=== PATIENT | female | born 2000 | race Native Hawaiian/Other Pacific Islander ===

== ENCOUNTER 2021-05-10 16:03 | Emergency (ER) | payer OTHER ==
[2021-05-23 19:59] LABS: PLATELET COUNT 236 K/uL (152-353)
[2021-05-23 20:01] LABS: POTASSIUM 3.4 mmol/L (3.6-5.2)
== END 2021-05-10 16:57 | disposition home or self-care (01) ==
LOC: ED 16:03
PROVIDERS: Hospitalist
DX: E86.0 Dehydration (principal); T40.2X5A Adverse effect of other opioids, initial encounter; R11.2 Nausea with vomiting, unspecified; Z98.890 Other specified postprocedural states; Y93.89 Activity, other specified; Y92.89 Other specified places as the place of occurrence of the external cause
CPT/HCPCS: 36415; 80053; 81000; 81025; 85027; 96360; 96375; 99284

== ENCOUNTER 2022-02-02 18:00 | Emergency (ER) | payer OTHER ==
[~2022-02-02] VITALS: Ht 154.9 cm; Wt 53.1 kg
[2022-02-02 18:04] VITALS: BP 122/77; TEMP 97.8
== END 2022-02-02 19:00 | disposition home or self-care (01) ==
LOC: ED 18:00
DX: L02.215 Cutaneous abscess of perineum (principal)
CPT/HCPCS: 99282